=== PATIENT | female | born 1990 | race Two or more races ===

== ENCOUNTER → 2020-10-08 | Outpatient (CLI) | payer OTHER ==
[~2020-10-08] MED LIST: COLACE100 MG PO; NIFEDIPINE10 MG PO; TERCONAZOLE45 GM VAG
== END | disposition home or self-care (01) ==
LOC: PRENATAL 14:00
PROVIDERS: ATTEND Obstetrics & Gynecology Maternal & Fetal Medicine
DX: O35.0XX1 Maternal care for (suspected) central nervous system malformation in fetus, fetus 1 (principal); O35.3XX1 Maternal care for (suspected) damage to fetus from viral disease in mother, fetus 1; O98.512 Other viral diseases complicating pregnancy, second trimester; Z36.89 Encounter for other specified antenatal screening; Z3A.20 20 weeks gestation of pregnancy

== ENCOUNTER 2020-12-03 14:34 | Outpatient (CLI) | payer OTHER | END 2020-12-03 15:15 | disposition home or self-care (01) | LOC: PRENATAL 14:34 | PROVIDERS: ATTEND Obstetrics & Gynecology Maternal & Fetal Medicine | DX: O26.843 Uterine size-date discrepancy, third trimester (principal); O35.0XX1 Maternal care for (suspected) central nervous system malformation in fetus, fetus 1; Z36.89 Encounter for other specified antenatal screening; Z3A.29 29 weeks gestation of pregnancy ==

== ENCOUNTER 2020-12-19 13:14 | Inpatient (IN) | payer OTHER ==
[~2020-12-19] VITALS: Ht 157.5 cm; Wt 53.5 kg
[2020-12-22] MEDS ORDERED: COLACE100 MG PO (08:07)
[2020-12-22] MEDS ORDERED: NIFEDIPINE10 MG PO (08:07)
[2020-12-22] MEDS ORDERED: TERCONAZOLE45 GM VAG (08:11)
== END 2020-12-22 09:19 | disposition home or self-care (01) | DRG 833 ==
LOC: OBS/DEL 13:14 → OB/GYN 12-20 07:20 → OBS/DEL 12-20 07:20 → LDR 12-20 07:20 → OB/GYN 12-20 14:00
PROVIDERS: ADMIT Obstetrics & Gynecology; ATTEND Obstetrics & Gynecology
PROC: BY4FZZZ Ultrasonography of Third Trimester, Single Fetus (ICD-10-PCS; principal; 2020-12-19)
PROC: 4A1HXFZ Monitoring of Products of Conception, Cardiac Rhythm, External Approach (ICD-10-PCS; 2020-12-19)
DX: O60.03 Preterm labor without delivery, third trimester (principal); Z3A.30 30 weeks gestation of pregnancy

== ENCOUNTER 2021-01-27 09:21 | Inpatient (IN) | payer OTHER ==
[~2021-01-27] VITALS: Ht 157.5 cm; Wt 54.9 kg
[2021-01-27] MEDS ORDERED: PRENATAL TABLE1 EAC1 PO (10:13)
[2021-01-29] MEDS ORDERED: PREPLUS CA-FE1 EACH PO (07:42)
[2021-01-29] MEDS ORDERED: IBUPROFEN400 MG PO (07:42)
[2021-01-29] MEDS ORDERED: DOCUSATE SODIU100 MG PO (07:42)
== END 2021-01-29 14:32 | disposition home or self-care (01) | DRG 807 ==
LOC: SURG-SUITE 09:21 → LDR 09:21 → SURG-SUITE 14:08
PROVIDERS: ADMIT Obstetrics & Gynecology; ATTEND Obstetrics & Gynecology
PROC: 10E0XZZ Delivery of Products of Conception, External Approach (ICD-10-PCS; principal; 2021-01-27)
PROC: 0W8NXZZ Division of Female Perineum, External Approach (ICD-10-PCS; 2021-01-27)
PROC: 4A1HXFZ Monitoring of Products of Conception, Cardiac Rhythm, External Approach (ICD-10-PCS; 2021-01-27)
DX: O42.013 Preterm premature rupture of membranes, onset of labor within 24 hours of rupture, third trimester (principal); O62.2 Other uterine inertia; Z37.0 Single live birth; Z3A.36 36 weeks gestation of pregnancy

== ENCOUNTER 2022-09-08 09:12 | Outpatient (CLI) | payer OTHER ==
[~2022-09-08 09:12] MED LIST changes: +DOCUSATE SODIU100 MG PO; +IBUPROFEN400 MG PO; +PRENATAL TABLE1 EAC1 PO; +PREPLUS CA-FE1 EACH PO
== END 2022-09-08 10:14 | disposition home or self-care (01) ==
LOC: PRENATAL 09:12
PROVIDERS: ATTEND Obstetrics & Gynecology Maternal & Fetal Medicine
DX: O36.80X0 Pregnancy with inconclusive fetal viability, not applicable or unspecified (principal); O09.219 Supervision of pregnancy with history of pre-term labor, unspecified trimester; Z3A.12 12 weeks gestation of pregnancy

== ENCOUNTER 2022-11-03 13:01 | Outpatient (CLI) | payer OTHER | END 2022-11-03 15:46 | disposition home or self-care (01) | LOC: PRENATAL 13:01 | PROVIDERS: ATTEND Obstetrics & Gynecology Maternal & Fetal Medicine | DX: O35.9XX0 Maternal care for (suspected) fetal abnormality and damage, unspecified, not applicable or unspecified (principal); O35.3XX0 Maternal care for (suspected) damage to fetus from viral disease in mother, not applicable or unspecified; O09.219 Supervision of pregnancy with history of pre-term labor, unspecified trimester; Z3A.20 20 weeks gestation of pregnancy ==

== ENCOUNTER 2023-01-26 10:45 | Outpatient (CLI) | payer OTHER | END 2023-01-26 10:46 | disposition home or self-care (01) | LOC: PRENATAL 10:45 | PROVIDERS: ATTEND Obstetrics & Gynecology Maternal & Fetal Medicine | DX: O26.849 Uterine size-date discrepancy, unspecified trimester (principal); O36.8199 Decreased fetal movements, unspecified trimester, other fetus; O32.9XX0 Maternal care for malpresentation of fetus, unspecified, not applicable or unspecified; O41.00X0 Oligohydramnios, unspecified trimester, not applicable or unspecified; Z3A.32 32 weeks gestation of pregnancy ==

== ENCOUNTER → 2023-02-02 | Outpatient (CLI) | payer OTHER | END | disposition home or self-care (01) | LOC: PRENATAL 14:07 | PROVIDERS: ATTEND Obstetrics & Gynecology Maternal & Fetal Medicine | DX: O36.8199 Decreased fetal movements, unspecified trimester, other fetus (principal); O32.9XX0 Maternal care for malpresentation of fetus, unspecified, not applicable or unspecified; O41.00X0 Oligohydramnios, unspecified trimester, not applicable or unspecified; Z3A.33 33 weeks gestation of pregnancy ==

== ENCOUNTER 2024-12-30 11:48 | Emergency (ER) | payer OTHER ==
[~2024-12-30] VITALS: Ht 157.5 cm; Wt 49.4 kg
[2024-12-30] MEDS ORDERED: 0.9 % SODIUM CHLORIDE 1,000 ML IV SCH (13:30)
[2024-12-30] MEDS ORDERED: IPRATROPIUM BROMIDE 0.5 MG/2.5 ML AMPUL.NEB IH ONE (13:30)
[2024-12-30] MEDS ORDERED: BENZONATATE 100 MG CAPSULE PO ONE (13:30)
[2024-12-30] MEDS ORDERED: FAMOTIDINE/PF 20 MG/2 ML VIAL IV ONE (13:30)
[2024-12-30] MEDS ORDERED: GUAIFENESIN 200 MG/10 ML BLIST.PACK PO ONE ×2 (13:45→14:15)
[2024-12-30] MEDS ORDERED: FAMOTIDINE/PF 20 MG/2 ML VIAL ONE (14:15)
[2024-12-30 14:22] LABS: BASO % 1.1 % (0.1-1.2); EOS # 0.13 (0.04-0.54); EOS % 1.8 % (0.7-7.0); LYMPH # 2.06 (1.18-3.74); LYMPH % 28.7 % (19.3-53.1); MEAN PLATELET VOLUME 11.90 fl (9.4-12.4); MONO # 0.49 (0.24-0.82); MONO % 6.8 % (4.7-12.5); NEUT # 4.38 (1.56-6.13); NEUT % 61.2 % (34.0-71.1); RED CELL DISTRIBUTION WIDTH 13.9 % (11.6-14.4)
[2024-12-30 14:58] LABS: ALT/SGPT 38.0 U/L (12-78); AST/SGOT 15.0 U/L (15-37); BILIRUBIN TOTAL 0.3 mg/dL (0.3-1.2); BUN CREA RATIO 21.0 (7.0-25.0); CREATININE SERUM 0.67 mg/dL (0.55-1.02); GFR 100.16; GLOBULINA 3.9 G/DL (2.4-3.5); GLUCOSE FASTING 99.0 mg/dL (65-100); OSMOLALITY SERUM 282.0 MOSM/KG (275-295)
[2024-12-30 16:41] LABS: COVID-19 AG NEGATIVE (NEGATIVE)
[2024-12-30] MEDS ORDERED: DEXAMETHASONE SODIUM PHOSPHATE 4 MG/ML VIAL IV ONE (18:00)
[2024-12-30] MEDS ORDERED: FLONASE16 GM IH (18:02)
[2024-12-30] MEDS ORDERED: IPRAT-ALBUT 0.5-3 ML IH (18:02)
[2024-12-30] MEDS ORDERED: MUCINEX1200 MG PO (18:02)
[2024-12-30] MEDS ORDERED: SINGULAIR10 MG PO (18:02)
[2024-12-30] MEDS ORDERED: PEPCID AC20 MG PO (18:02)
[2024-12-30] MEDS ORDERED: DEXAMETHASONE SODIUM PHOSPHATE 4 MG/ML VIAL ONE (18:10)
== END 2024-12-30 18:27 | disposition home or self-care (01) ==
LOC: ER 11:49
PROVIDERS: Student in an Organized Health Care Education/Training Program
DX: K21.9 Gastro-esophageal reflux disease without esophagitis (principal); R09.89 Other specified symptoms and signs involving the circulatory and respiratory systems; J32.9 Chronic sinusitis, unspecified; Z91.013 Allergy to seafood; Z20.822 Contact with and (suspected) exposure to COVID-19